=== PATIENT | male | born 1965 | race Caucasian/White ===

== ENCOUNTER 2016-05-21 11:12 | Emergency (ER) | payer BC ==
[2016-05-21 11:35] VITALS: BP 171/118
--- NOTE | 2016-05-23 10:32 | ER ---
DATE SEEN: 05/21/2016 CHIEF COMPLAINT: Green feet. HISTORY OF PRESENT ILLNESS: This 51-year-old, , smoking 3/4 pack a day, diabetic, who has not followed his glucose or seen a doctor for 2 years, takes 25 Lantus in the morning and 5 units per meal of NovoLog, has a problem with gastrointestinal autonomic neuropathy with 20 to 25 bowel movements per day. He has occasional chest discomfort. The patient denies shortness of breath or trauma. More recently he has experienced shortness of breath after walking 10 feet, compared to his usual 10 yards. He drinks 3 beers a day. He works at the [employer]. ALLERGIES: IV contrast media and oral contrast media. PAST MEDICAL HISTORY: The patient has GERD, takes omeprazole 40 mg at bedtime; lisinopril for hypertension 20 mg a day; and for his diabetes 25 units of Lantus and 5 units of insulin NovoLog with meals. PHYSICAL EXAMINATION: GENERAL: This is an asthenic, very thin, approximately 120--pound male, 54.43 kg. VITAL SIGNS: Temperature is 37.1, pulse 83 and regular, blood pressure 171/118, respirations 18, oxygen saturation 100%. HEENT: The patient denies headache or recent compromise in his vision, except for the green appearance of his feet. PERRLA intact. Eyegrounds, retinopathy noted from diabetes. No hemorrhages noted. No retinal detachment. EOMs normal. Pharynx without abnormality. Pharynx is dry. NECK: No cervical adenopathy, thyromegaly, or masses in neck. LUNGS: Clear to auscultation. No rales. HEART: S1, S2. No murmur. No irregular rate and rhythm. ABDOMEN: Soft. No guarding. No abdominal discomfort. EXTREMITIES: Without edema. He has decreased sensation with stocking distribution on his lower extremities and slight dysesthesia of hands. upper extremities. No tremor. Deep tendon reflexes hypoactive in upper and lower extremities. NEUROLOGIC: Cranial nerves 2 through 12 intact. Gait appropriate. Muscle strength appropriate. LABORATORY FINDINGS: He has pseudohyponatremia with sodium 127, hypochloremia at 92, CO2 of 21, fasting glucose 441. AST 170, ALT 75, the latter secondary to ethanolism. Alkaline phosphatase elevated. Greater than a thousand glucose in the urine, greater than 15 ketones in the urine, rare bacteria. ASSESSMENT: 1. Extreme weight loss secondary to diabetic gastrointestinal autonomic neuropathy induced diarrhea. 2. Diabetic ketoacidosis. 3. Diabetic retinopathy. 4. Diabetic neural vascular disease. 5. Mild dehydration. 6. Alcohol-induced gastritis. 7. Diabetic hepatitis with AST double the value of the ALT. 8. Marked asthenia. 9. Pseudohyponatremia and hypochloremia secondary to hyperglycemia. PLAN: The patient was given 7 units of insulin at 1230 hours. Advised to increase fluid intake. Increase his Lantus to 27 units per day and 7 units of NovoLog t.i.d. He needs to follow up with his doctor in the next 24 to 72 hours. Drink 2 L of fluid a day (2 quarts of fluid a day). The patient is stable. /[id number] LS/MODL ADDENDUM: TIME SEEN: The patient was seen at 12:15 noon. /[id number] LS/MODL
== END 2016-05-21 12:45 | disposition home or self-care (01) ==
LOC: FB.ED 11:12
DX: E11.43 Type 2 diabetes mellitus with diabetic autonomic (poly)neuropathy (principal); E11.319 Type 2 diabetes mellitus with unspecified diabetic retinopathy without macular edema; E11.42 Type 2 diabetes mellitus with diabetic polyneuropathy; E86.0 Dehydration; E11.69 Type 2 diabetes mellitus with other specified complication; E11.65 Type 2 diabetes mellitus with hyperglycemia; K21.9 Gastro-esophageal reflux disease without esophagitis; Z79.4 Long term (current) use of insulin; Z91.041 Radiographic dye allergy status
CPT/HCPCS: 36415; 80053; 81001; 82962; 83036; 99284

== ENCOUNTER 2016-11-02 08:05 | Day surgery (SDC) | payer BC ==
[~2016-11-02 08:05] MED LIST: Lactated Ringers 1,000 ML IV SCH
[2016-11-02] MEDS ORDERED: Lactated Ringers 1,000 ML IV ONE (10:15)
[2016-11-02] MEDS ORDERED: Propofol 200 MG/20 ML SDV IV ONE (10:15)
[2016-11-02] MEDS ORDERED: ePHEDrine 50 MG/ML SDV IV ONE (10:15)
--- NOTE | 2016-11-02 10:37 | PCM.OPNOTE ---
- General Post-Op/Procedure Note Date of Surgery/Procedure: 11/02/16 Operative Procedure(s): flex sig attempt at c scope Findings: poor prep Pre Op Diagnosis: diarrhea and wt loss Post-Op Diagnosis: Same Anesthesia Technique: GODFREY Primary Surgeon: Tal Funes Anesthesia Provider: Abdoul Rodriguez Pathology: none Complications: poor prep Condition: Good Free Text/Narrative:: see dictation
--- NOTE | 2016-11-02 11:28 | OR ---
DATE OF OPERATION: 11/02/2016 SURGEON: Tal Funes MD PROCEDURE PERFORMED: Attempted colonoscopy. PREOPERATIVE DIAGNOSIS: Diarrhea with weight loss. POSTOPERATIVE DIAGNOSIS: Incomplete prep. INDICATIONS FOR PROCEDURE: This is a 51-year-old white male, who presents with the above-mentioned history of weight loss and diarrhea. He was offered and accepted a colonoscopy. DESCRIPTION OF PROCEDURE: After an excellent IV sedation was administered, digital rectal exam was performed. No marked abnormality was noted. Flexible colonoscope was inserted and we immediately encountered thick tenacious liquid stool, which had coated the entire lining of his colon. The scope was advanced at approximately 40 cm with no improvement. At this point, we elected to terminate the case as an adequate exam could not be obtained. Colon was deflated, scope was removed. The patient was taken to recovery. /[id number] /MODL
[2016-11-02 12:37] VITALS: BP 135/87
== END 2016-11-02 11:29 | disposition home or self-care (01) ==
LOC: FB.SDS 08:05
PROVIDERS: ATTEND Surgery
DX: R19.7 Diarrhea, unspecified (principal); R63.4 Abnormal weight loss; E11.69 Type 2 diabetes mellitus with other specified complication; I10 Essential (primary) hypertension; E78.5 Hyperlipidemia, unspecified; E13.10 Other specified diabetes mellitus with ketoacidosis without coma; Z79.4 Long term (current) use of insulin; Z79.899 Other long term (current) drug therapy; Z98.890 Other specified postprocedural states; Z91.041 Radiographic dye allergy status; F17.210 Nicotine dependence, cigarettes, uncomplicated
CPT/HCPCS: 45378; 82962; J2704; J7120